=== PATIENT | female | born 1985 | race Caucasian/White ===

== ENCOUNTER → 2024-05-09 14:28 | Outpatient (CLI) | payer BC, SELFPAY ==
--- NOTE | 2024-05-09 14:31 | DI.US.S_ITS ---
PROCEDURE: US PELVIC COMPLETE INDICATIONS: hx miscarriage,post d c-still bleeding TECHNIQUE: Real-time scanning was performed of the pelvic organs, with image documentation. Additional endovaginal scanning was necessary due to incomplete visualization of the adnexal and endometrial structures by transabdominal scanning. COMPARISON: None. FINDINGS: Uterus: Uterus is anteverted and normal in size at 8 x 5.9 x 4.6 cm. The myometrium is heterogeneous. 4.7 x 4.4 x 3.5 cm subserosal fibroid in right anterior myometrium is seen. The endometrium measures 9 mm combined thickness. Heterogeneous endometrial echotexture is seen with internal vascularity. No gross endometrial mass or fluid. Ovaries: The right ovary measures 4.2 x 3.0 x 2.4 cm, with a calculated ovarian volume of 15.8 cc. The left ovary measures 2.8 x 2.1 x 1.3 cm, with a calculated ovarian volume of 4.0 cc. Simple cyst is seen in right ovary measures 2.1 x 2.5 x 2.1 cm in size. Less than 12 follicles can be seen in each ovary. No adnexal masses are seen. Other: No pathologic free abdominal or pelvic fluid. IMPRESSION: 1. Heterogeneous endometrium with increased vascularity. No definite endometrial mass or fluid is seen. 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 2. Heterogeneous myometrial echotexture with a 4.7 cm uterine fibroid as above. 3. Simple cyst seen in right ovary as above. No solid appearing ovarian lesion. No evidence of ovarian torsion. We strive to produce accurate, complete, and clear reports of imaging services. To assist us in improving patient care, this report was composed using standard report templates and voice recognition software. Therefore, it may contain abnormal punctuation, insertions and/or omissions. Occasional wrong-word or sound-alike substitutions may occur. Though we review the report and make efforts to correct it, we do recommend that the report be read carefully in proper context to recognize any text inaccuracies. Dictated by: Jose Guadalupe Keller M.D. on 05/09/2024 at 15:28 Approved by: Jose Guadalupe Keller M.D. on 05/09/2024 at 15:35
[2024-05-09 17:54] LABS: Add Manual Diff / Slide Review NO; Basophils Absolute Auto 0 /uL (0-100); Basophils Percent Auto 0.2 % (0-2); Eosinophils Absolute Auto 100 /uL (0-450); Hematocrit 38.5 % (36-46); Lymphocytes Absolute Auto 1600 /uL (1100-4500); Lymphocytes Percent Auto 26.9 % (25-40); Mean Corpuscular HGB Conc 33.9 % (30-36); Mean Corpuscular Hemoglobin 32.6 PG (26-34); Monocytes Absolute Auto 300 /uL (0-900); Monocytes Percent Auto 4.4 % (3-14); Neutrophils Absolute Auto 3900 /uL (1500-7000); Neutrophils Percent Auto 67.5 % (50-75); Platelet Count 239 X10^3/uL (150-400); Red Cell Distribution Width 12.2 % (11.6-14.8); White Blood Cell Count 5.8 X10^3/uL (4.5-11.0)
[2024-05-09 19:07] LABS: HCG Quantitative /Beta subunit < 2.39 mIU/mL
== END ==
PROVIDERS: Referring Provider Advanced Practice Midwife; Visit Provider Advanced Practice Midwife
DX: N83.291 Other ovarian cyst, right side (principal); N93.9 Abnormal uterine and vaginal bleeding, unspecified; D25.2 Subserosal leiomyoma of uterus; O03.30 Unspecified complication following incomplete spontaneous abortion; Z80.41 Family history of malignant neoplasm of ovary; Z80.9 Family history of malignant neoplasm, unspecified
CPT/HCPCS: 36415; 76830; 76856; 84702; 85025; 86900; 86901

== ENCOUNTER 2024-05-24 08:03 | Day surgery (SDC) | payer OTHER, SELFPAY ==
[2024-05-18 09:26] VITALS: BMI 27.8
--- NOTE | 2024-05-24 | PATH_ITS ---
[facility] Accession Number: [id number] No. of containers..01 Tissue . 01 Material submitted: . uterus - UTERINE CURRETTINGS . 01 Diagnosis: UTERINE CURETTINGS: Weakly proliferative endometrium with breakdown changes. No endometrioid intraepithelial neoplasia and no malignancy. [facility] 05/28/2024 1335 Local . 01 Electronically signed: . Gris Mauro MD, Pathologist NPI- [id number] . 01 Gross description: . Received in formalin with two patient identifiers and uterine curettings, are multiple luo hemorrhagic soft tissue fragments aggregating to 2.6 x 2.1 x 0.5 cm. Filtered and submitted in A1. ([id number]) /MRV 05/25/2024 1702 Local . 01 Pathologist provided ICD-10: N93.9 . 01 CPT . 352099 Specimen Comment: A courtesy copy of this report has been sent to [facility] Performed at: [address], [place], [place] [id number] MD Bharat Campbell MD Phone: [phone]
[2024-05-24] MEDS: ACETAMINOPHEN 325 MG TABLET 975 MG PO (08:22)
[2024-05-24] MEDS: LACTATED RINGERS 1,000 ML 42 ML IV (08:23)
[2024-05-24 08:40] VITALS: BP 95/72; PULSE 78; RESP 16; TEMP 36.6; O2SAT 100; BMI 27.8
--- NOTE | 2024-05-24 10:12 | P.HPOB_ITS ---
History of Present Illness History of Present Illness Narrative: Getachew Bocanegra is a 38 year old female admitted for planned diagnostic hysteroscoy with D&C due to abnormal prolonged vaginal bleeding s/p D&C for miscarriage in the fall. She reports a few days of no bleeding last week, but then started having heavier flow like a period this week. [facility] Medical History Subserosal leiomyoma of uterus History of in vitro fertilization History of miscarriage Surgical History S/P dilation and curettage (~02/2024) Social History household members: spouse Smoking Status: Never smoker Meds Home Medications and Allergies Home Medications Medication Instructions Recorded Confirmed Type No Known Home Medications 05/14/24 05/24/24 History Allergies Allergy/AdvReac Type Severity Reaction Status Date / Time No Known Drug Allergies Allergy Verified 05/24/24 08:25 Review of Systems Review of Systems ROS: Yes All systems reviewed with the patient and are negative except as otherwise documented Exam Vital Signs (past 8 hours): - 05/24/24 08:40 Temperature 97.9 F Pulse Rate 78 Respiratory Rate 16 Blood Pressure 95/72 Pulse Oximetry 100 Oxygen Delivery Method Room Air Oxygen Delivery Method Room Air Const General: healthy appearing, comfortable and No acute distress Resp Effort & Inspection: normal respiratory effort and able to speak in complete sentences Skin General: no rashes or lesions noted Neuro General: patient alert and patient awake Cognition: normal cognition Speech: speech normal Extrem General: normal to inspection Psych Mood: congruent mood Affect: normal affect Objective Imaging US - abdomen: Radiologist's impression: FINDINGS: Uterus: Uterus is anteverted and normal in size at 8 x 5.9 x 4.6 cm. The myometrium is heterogeneous. 4.7 x 4.4 x 3.5 cm subserosal fibroid in right anterior myometrium is seen. The endometrium measures 9 mm combined thickness. Heterogeneous endometrial echotexture is seen with internal vascularity. No gross endometrial mass or fluid. Ovaries: The right ovary measures 4.2 x 3.0 x 2.4 cm, with a calculated ovarian volume of 15.8 cc. The left ovary measures 2.8 x 2.1 x 1.3 cm, with a calculated ovarian volume of 4.0 cc. Simple cyst is seen in right ovary measures 2.1 x 2.5 x 2.1 cm in size. Less than 12 follicles can be seen in each ovary. No adnexal masses are seen. Other: No pathologic free abdominal or pelvic fluid. IMPRESSION: 1. Heterogeneous endometrium with increased vascularity. No definite endometrial mass or fluid is seen. Small Equipment Operator correlation is recommended. 2. Heterogeneous myometrial echotexture with a 4.7 cm uterine fibroid as above. 3. Simple cyst seen in right ovary as above. No solid appearing ovarian lesion. No evidence of ovarian torsion. We strive to produce accurate, complete, and clear reports of imaging services. To assist us in improving patient care, this report was composed using standard report templates and voice recognition software. Therefore, it may contain abnormal punctuation, insertions and/or omissions. Occasional wrong-word or sound-alike substitutions may occur. Though we review the report and make efforts to correct it, we do recommend that the report be read carefully in proper context to recognize any text inaccuracies. Dictated by: Jose Guadalupe Keller M.D. on 05/09/2024 at 15:28 Approved by: Jose Guadalupe Keller M.D. on 05/09/2024 at 15:35 Assessment & Plan Assessment and plan (1) Abnormal uterine bleeding (AUB): Status: Acute Plan 38yo with 3 months of prolonged abnormal vaginal bleeding after suction D&C in , here for planned diagnostic hysteroscopy with D&C. We reviewed postop expectations, as well as risk and benefit of the procedure, and signed the surgical consent today. -plan for same day procedure -no preop abx indicated -will follow-up at her postop appt for next steps Surgery consent We discussed the risks/benefits/alternatives to the proposed procedure, to include but not limited to: -risk of bleeding, requiring medications, blood products, or other procedures as indicated -risk of infection, requiring prolonged hospital stay or other procedures -risk of injury to other structures, including bowel, bladder, blood vessels, nerves, etc. which may also require additional procedures -risk of adverse reaction to anesthesia or medications -risk of venous thromboembolism and associated sequelae -risk of rare complications such as cardiac arrest, or extremely rarely, Patient is aware of the risks, and desires to proceed with planned surgical procedure. Time-Based Coding :: [30min] spent with patient and on the chart (including review of chart, obtaining history, exam, reviewing outside data, placing orders, documenting exam and treatment plan, and counseling patient) on [05/24/24].
--- NOTE | 2024-05-24 10:39 | SUR.OPER ---
Lithotomy on padded OR bed, head on pillow, arms secured on padded arm boards at <90 degrees abduction. Legs secured in padded yellow fins stirrups.
[2024-05-24] MEDS: SILVER NITRATE STICK 1 EACH TOP (10:44)
--- NOTE | 2024-05-24 10:55 | P.OP_ITS ---
Operative Date/Time/Diagnoses Date of procedure: 05/24/24 Time of procedure: 10:30 Pre-op diagnosis: Abnormal uterine bleeding Post-op diagnosis: same Procedure & Clinicians Procedure: Diagnostic hysteroscopy Dilation and curettage Same procedure as scheduled: Yes Indications: 38yo with 3 months of prolonged abnormal uterine bleeding, counseled and consented for diagnostic hysteroscopy with D&C. Surgeon: Jasmin Wells Click Yes if Unassisted: Yes Anesthesia Type: General Operative Notes Findings: Normal appearing uterine cavity. Bilateral tubal ostia visualized. Specimen(s): other (uterine curettings) Estimated Blood Loss (mL): 2 Procedure in detail: The risks, benefits, indications and alternatives of the procedure were reviewed with the patient and informed consent was obtained. The pt was taken to the operating room where general anesthesia with LMA was obtained without difficulty. The pt was then placed in the low lithotomy position using gel- padded Gaurav stirrups. Sequential compression devices were placed bilaterally for VTE prophylaxis. The pt was then prepped and draped in the sterile fashion. A sterile speculum was placed in the patient?s vagina and the cervix was visualized. A single tooth tenaculum was used to grasp the anterior lip of the cervix. The cervix was then gently, dilated to a size 8 Hegar dilator. The operative hysteroscope was first primed and pressure set. The operative hysteroscope was then advanced through the endocervical canal under direct visualization. The uterus was distended with warm saline, and notable for the above findings. The operative hysteroscope was then removed under direct visualization. Sharp curettage was performed, and tissue obtained was sent to pathology for review. The single tooth tenaculum was removed from the anterior lip of the cervix. The tenaculum site was noted to be hemostatic after direct pressure and silver nitrate was applied. All instruments were then removed from the patient?s vagina. Hysteroscopic fluid deficit was 50cc of normal saline. The patient tolerated the procedure well. At the completion of the case the sponge and needle counts were correct x 2. The patient was taken to the PACU in stable condition. Complications: none Post-operative Condition: stable Disposition: PACU Plan for aftercare: Discharge to home once patient is meeting all discharge criteria.
[2024-05-24 10:56] VITALS: BP 99/67; PULSE 71; RESP 14; TEMP 36.5; O2SAT 97
[2024-05-24 11:00] VITALS: BP 103/74; PULSE 68; RESP 14; O2SAT 98
[2024-05-24 11:05] VITALS: BP 103/70; PULSE 69; RESP 12; O2SAT 99
[2024-05-24 11:11] VITALS: BP 99/67; PULSE 65; RESP 14; TEMP 36.6; O2SAT 99
[2024-05-24] MEDS: OXYCODONE IR 5 MG TABLET PO (11:39)
[2024-05-24 12:00] VITALS: BP 112/80; PULSE 70; RESP 16; TEMP 36.1; O2SAT 97
== END 2024-05-24 12:05 | disposition home or self-care (01) ==
PROVIDERS: Referring Provider Student in an Organized Health Care Education/Training Program; Visit Provider Student in an Organized Health Care Education/Training Program
PROC: 0UDB8ZZ Extraction of Endometrium, Via Natural or Artificial Opening Endoscopic (ICD-10-PCS; CPT 58558; principal; 2024-05-24 09:15)
DX: N93.9 Abnormal uterine and vaginal bleeding, unspecified (principal)
CPT/HCPCS: 58558; J1100; J2250; J2405; J2704; J3010

== ENCOUNTER → 2024-07-11 16:16 | Outpatient (CLI) | payer OTHER, SELFPAY ==
--- NOTE | 2024-07-11 16:17 | DI.MRI.S_ITS ---
PROCEDURE: MR KNEE LT WO CON INDICATIONS: internal derangement of lt knee TECHNIQUE: Noncontrast sagittal PD fast spin echo and T2 fast spin echo with fat saturation, sagittal 3-D FLASH with fat saturation; coronal T1 spin echo and PD fast spin echo with fat saturation, and axial PD fast spin echo with fat saturation through the knee. COMPARISON: None. FINDINGS: Image quality: Excellent. Bones: Mildly heterogenous, speckled marrow signal is present at the articular surfaces of the tibia, femur, and patella, likely reflective of disuse osteopenia versus hyperemia. The bone marrow signal is otherwise normal. There is no acute fracture or dislocation. Joints: There is a moderate knee joint effusion with likely internal hemorrhage/proteinaceous content. There is no significant knee osteoarthritis. Bonds's cyst: None. Menisci: The medial meniscus is normal. The lateral meniscus is normal. The posterior root attachments are normal. Cruciate ligaments: The anterior cruciate ligament is normal. The posterior cruciate ligament is normal. Collateral ligaments: The medial collateral ligament complex is normal. The lateral collateral ligament complex is normal. Popliteus Muscle/Tendon: The popliteus muscle and tendon are normal. Extensor mechanism: The quadriceps tendon is normal. The patellar tendon is normal. The medial and lateral patellar retinacular attachments are normal. Articular cartilage: There is no significant articular cartilage defect. Other: No other acute findings. IMPRESSION: 1. Moderate joint effusion with likely internal hemorrhage/proteinaceous content. In the absence of trauma, this finding may be secondary to an underlying inflammatory (such as rheumatoid arthritis) or hemophilic arthropathy, pigmented villonodular tenosynovitis/diffuse tenosynovial joint cell tumor (less likely given the absence of MR findings), or an indolent infection. Arthrocentesis and serological testing would be recommended for further evaluation. 2. No other acute MR abnormality of the knee. Dictated by: Adrián Young M.D. on 07/11/2024 at 22:46 Approved by: Adrián Young M.D. on 07/11/2024 at 22:58
== END ==
PROVIDERS: Referring Provider Orthopaedic Surgery; Visit Provider Orthopaedic Surgery
DX: M23.92 Unspecified internal derangement of left knee (principal); M25.462 Effusion, left knee
CPT/HCPCS: 73721

== ENCOUNTER → 2024-09-07 17:51 | Outpatient (CLI) | payer OTHER, SELFPAY ==
--- NOTE | 2024-09-07 17:52 | DI.MG.S_ITS ---
MM screening mammo BI: 09/07/2024. BI-RADS: 2 CLINICAL: 38-year old female for bilateral screening mammogram. Tyrer-Cuzick lifetime risk of 29.6%. Current reported family history of breast cancer: mother. History of ovarian cancer in one first-degree relative. The patient had prior bilateral breast biopsies. PRIOR EXAMS 08/16/2023, 02/03/2023, 06/16/2022, 12/02/2021. MAMMOGRAPHY TECHNIQUE: 2D and 3D (tomosynthesis) digital mammographic views obtained, with additional images as needed for full coverage. Current study was also evaluated with a Computer Aided Detection (CAD) system. DENSITY D. The breasts are extremely dense, which lowers the sensitivity of mammography. MAMMOGRAPHY FINDINGS Bilateral: Biopsy markers present. There are no suspicious masses, calcifications, or other findings in the breast. IMPRESSION: * No evidence of malignancy with benign findings. RECOMMENDATIONS Bilateral * According to the Tyrer-Cuzick Risk Assessment Model, based on the information provided your patient has a greater than 20% lifetime risk for developing breast cancer. Consider supplemental screening with breast MRI and participation in a high risk screening program. * Annual screening mammography. OVERALL ASSESSMENT CATEGORY BI-RADS-2: Benign. The [employer] recommends annual screening mammography beginning at age 40 for women with average risk of breast cancer. ELECTRONICALLY SIGNED: Sudeep Sibley M.D. on 09/10/2024 at 07:33:44 AM PT Interpreting Station ID: [id number]
== END ==
PROVIDERS: Referring Provider Advanced Practice Midwife; Visit Provider Advanced Practice Midwife
DX: Z12.31 Encounter for screening mammogram for malignant neoplasm of breast (principal); R92.341 Mammographic extreme density, right breast; Z80.3 Family history of malignant neoplasm of breast; Z80.41 Family history of malignant neoplasm of ovary
CPT/HCPCS: 77063; 77067

== ENCOUNTER → 2024-10-29 12:47 | Outpatient (CLI) | payer OTHER, SELFPAY ==
--- NOTE | 2024-10-29 12:49 | DI.MRI.S_ITS ---
MR breast BI wo/w con: 10/29/2024. BI-RADS: 2 CLINICAL: 39-year old female for bilateral diagnostic breast MRI. Current reported family history of breast cancer: mother. History of ovarian cancer in one first- degree relative. The patient had prior bilateral breast biopsies. PRIOR EXAMS: Mammogram(s): 09/07/2024. Mammogram 06/16/2022 and MRI dated 01/24/2023. MRI TECHNIQUE: Bilateral breast MRI was performed on a 1.5 Analia magnet using a dedicated breast coil with mild compression. Axial T1 and T2 STIR sequences were obtained. Dynamic contrast enhanced VIBRANT fat-suppressed sequences were obtained. Delayed sagittal high resolution or sagittal reconstructed isotropic sequence was also obtained. Subtraction images and maximum intensity projection images were obtained. The study was evaluated using NuScriptRx software. IV Contrast: 20 ml ProHance. FIBROGLANDULAR TISSUE Bilateral: D. Extreme fibroglandular tissue. BACKGROUND PARENCHYMAL ENHANCEMENT Bilateral: Mild symmetrical background parenchymal enhancement. BREAST FINDINGS Right: There is no suspicious mass or non-mass enhancement. No suspicious architectural distortion. No skin or nipple abnormalities. No internal mammary chain or axillary adenopathy. Susceptibility artifact from biopsy marker noted. Left: Lower Outer at 4:00, Middle depth, measuring 1.2 x 1.1 x 0.9cm: Correlating with area of biopsy there is an oval, circumscribed heterogeneously enhancing mass. There is a biopsy marker noted within this mass consistent with previous benign biopsy. No other suspicious mass, non-mass enhancement, or architectural distortion. No axillary or internal mammary chain adenopathy. CHEST FINDINGS Visualized portions of the chest appear unremarkable. ABDOMEN FINDINGS Visualized portions of the upper abdomen appear unremarkable. IMPRESSION: Right * No evidence of malignancy. Left * No evidence of malignancy with benign findings. RECOMMENDATIONS Bilateral * According to the Tyrer-Cuzick Risk Assessment Model, based on the information provided your patient has a greater than 20% lifetime risk for developing breast cancer. Consider supplemental screening with breast MRI and participation in a high risk screening program. * Annual screening mammography. OVERALL ASSESSMENT CATEGORY BI-RADS-2: Benign. ELECTRONICALLY SIGNED: Sudeep Sibley M.D. on 10/29/2024 at 05:52:17 PM PT Interpreting Station ID: [id number]
== END ==
LOC: MRI 12:48
PROVIDERS: Referring Provider Advanced Practice Midwife; Visit Provider Advanced Practice Midwife
DX: N63.23 Unspecified lump in the left breast, lower outer quadrant (principal); R92.323 Mammographic fibroglandular density, bilateral breasts; Z80.3 Family history of malignant neoplasm of breast; Z80.41 Family history of malignant neoplasm of ovary
CPT/HCPCS: 77049; A9579